=== PATIENT | male | born 1940 | race Caucasian/White ===

== ENCOUNTER 2021-04-18 01:23 | Day surgery (SDC) | payer MEDICARE, SELFPAY ==
[2021-04-09 13:09] VITALS: BMI 27.0
--- NOTE | 2021-04-17 14:24 | P.PNAN_ITS ---
Anes - Initial Pre Proc Eval Procedure: Operation Date: 04/18/21 08:15 Proposed Procedures p Colonoscopy - Rc Lai MD Date/Time: 04/17/21 14:24 Surgeon: Rc Lai MD Pre Op Diagnosis: Rectal bleed, blood in stool Patient Data Age: 80 Gender: M Height: 1.85 m Weight: 93 kg Allergies Allergy/AdvReac Type Severity Reaction Status Date / Time No Known Allergies Allergy Verified 04/18/21 07:00 Home Medications Medication Instructions Recorded Confirmed Type finasteride 5 mg PO DAILY 04/09/21 04/18/21 History tamsulosin 0.4 mg PO BID 04/09/21 04/18/21 History Patient hx anesthesia problems: none Family hx anesthesia problems: none Results Review: All pre-operative results and documents have been reviewed as part of the pre-operative evaluation. [facility] Past Medical History Medical History (Updated 04/17/21 @ 14:24 by Ruben Suárez MD) BPH (benign prostatic hyperplasia) Overweight (BMI 25.0-29.9) Social History Social History Smoking status: Never smoker Drinks per week: 7 Living arrangements: alone Spiritual care concerns: No Anes - Eval Final PreProcedure Day of Procedure 04/17/21 14:24 Patient weight: overweight Heart: regular rate and rhythm Lungs: clear to auscultation and normal air movement Airway: Mallampati scale class II Neurological: alert and oriented Last oral intake: >/= 8 hours ASA classification: II Emergent: no Anesthetic plan: proceed Anesthesia type and monitoring: general GIVS Results Review: All pre-operative results and documents have been reviewed as part of the pre-operative evaluation. Informed Consent: The patient's anesthetic plan and its attendant risks and benefits were discussed with the patient/family/POA. Questions were solicited and answers provided to the satisfaction of the patient/family/POA.
[2021-04-18 07:01] VITALS: BP 108/77; PULSE 89; RESP 16; TEMP 36.4; O2SAT 99; BMI 28.8
[2021-04-18] MEDS: LACTATED RINGERS 1,000 ML 150 ML IV CONT (07:12)
--- NOTE | 2021-04-18 07:58 | WPDGICN ---
Assessment and Plan Assessment and plan (1) Encounter for screening colonoscopy: Code(s): Z12.11 - Encounter for screening for malignant neoplasm of colon Status: Acute Assessment and Plan: Screening colonoscopy is advised because of patient's age. (2) Occult blood in stools: Code(s): R19.5 - Other fecal abnormalities Status: Acute Assessment and Plan: Patient recently found to have occult blood in stool. For this reason screening colonoscopy is advised. High-fiber diet is suggested further recommendations will be given after endoscopy. GI Consult Note Consult date/time: 04/18/21 07:58 HPI: Nolan Galindo is a 80 year old male Presents for colonoscopy. Patient recently found to have occult blood in stool. He denies abdominal pain. He has had One occasion where he noticed bright red blood per rectum with wiping.. Family history is noncontributory. His otherwise been in general good health. On no other medications. Presents today for a screening colonoscopy. Review of Systems Review of Systems: All systems reviewed & are unremarkable except as noted in HPI and below PMFSH Past Medical History Medical History (Updated 04/18/21 @ 07:59 by Rc Lai MD) BPH (benign prostatic hyperplasia) Overweight (BMI 25.0-29.9) Social History Social History Smoking status: Never smoker Drinks per week: 7 Living arrangements: alone Spiritual care concerns: No Meds Home Medications and Allergies Home Medications Medication Instructions Recorded Confirmed Type finasteride 5 mg PO DAILY 04/09/21 04/18/21 History tamsulosin 0.4 mg PO BID 04/09/21 04/18/21 History Allergies Allergy/AdvReac Type Severity Reaction Status Date / Time No Known Allergies Allergy Verified 04/18/21 07:00 Vital Signs Vital Signs - 24 hr 04/18/21 07:01 Temperature 97.5 F L Pulse Rate 89 Respiratory Rate 16 Blood Pressure 108/77 Pulse Oximetry 99 Exam Narrative: Physical exam reveals patient be alert. Vital signs stable. HEENT exam is unremarkable. Patient is anicteric. Lungs are clear to auscultation and percussion. Heart is without murmur or extra sounds. Abdominal exam bowel sounds present soft nontender with no organomegaly. Digital external rectal exam is normal.
[2021-04-18 08:25] VITALS: BP 102/62; PULSE 69; RESP 27; O2SAT 97
[2021-04-18 08:35] VITALS: BP 112/68; PULSE 71; RESP 24; O2SAT 97
[2021-04-18 08:45] VITALS: BP 121/80; PULSE 65; RESP 25; O2SAT 98
[2021-04-18 08:52] LABS: Hematocrit 41.1 % (42.0-52.0); Hemoglobin 13.7 g/dL (14.0-18.0); Mean Corpuscular HGB Conc 33.3 g/dl (32-36); Mean Corpuscular Hemoglobin 31.1 pg (26-34); Mean Corpuscular Volume 93.2 fl (80-100); Mean Platelet Volume 9.2 fl (7.4-10.4); Platelet Count Result 177 k/mm3 (150-375); Red Blood Count 4.41 M/mm3 (4.6-6.20); Red Cell Distribution Width 12.9 % (11.5-14.5); White Blood Count 4.7 K/mm3 (4.5-10.0)
[2021-04-18 09:10] LABS: Alanine Aminotransferase 19 U/L (4-50); Albumin Level 4.3 g/dL (3.5-5.1); Alkaline Phosphatase 59 U/L (38-126); Aspartate Amino Transferase 22 U/L (17-59)
[2021-04-18 09:37] LABS: Carcinoembryonic Antigen 5.5 ng/mL (0.0-3.0)
== END 2021-04-18 08:57 | disposition home or self-care (01) ==
PROVIDERS: PCP Family Medicine Adolescent Medicine; Visit Provider Internal Medicine Gastroenterology
PROC: 0DJD8ZZ Inspection of Lower Intestinal Tract, Via Natural or Artificial Opening Endoscopic (ICD-10-PCS; CPT 45378; principal; 2021-04-18 08:15)
DX: Z12.11 Encounter for screening for malignant neoplasm of colon (principal); C19 Malignant neoplasm of rectosigmoid junction; K64.8 Other hemorrhoids; K92.1 Melena; N40.0 Benign prostatic hyperplasia without lower urinary tract symptoms
CPT/HCPCS: 45380; 36415; 80076; 82378; 85027; 88305; J2704; J7120

== ENCOUNTER 2021-04-23 09:53 | Outpatient (CLI) | payer MEDICARE, SELFPAY ==
[2021-04-23 10:27] LABS: Basophils Percent Auto 0.8 % (0.2-1.2); Eosinophils Absolute Auto 0.3 K/mm3 (0-0.3); Eosinophils Percent Auto 5.8 % (0-4.4); Hematocrit 43.7 % (42.0-52.0); Hemoglobin 14.7 g/dL (14.0-18.0); Immature Granulocyte Absolute 0.04 K/mm3 (0.00-0.031); Immature Granulocyte Percent A 0.8 % (0-0.5); Lymphocytes Absolute Auto 1.52 K/mm3 (0.9-3.2); Lymphocytes Percent Auto 29.6 % (18.3-44.2); Mean Corpuscular HGB Conc 33.6 g/dl (32-36); Mean Corpuscular Hemoglobin 30.9 pg (26-34); Mean Platelet Volume 8.9 fl (7.4-10.4); Monocytes Absolute Auto 0.4 K/mm3 (0.1-0.6); Monocytes Percent Auto 8.4 % (2.6-8.5); Neutrophils Absolute Auto 2.8 K/mm3 (1.3-6.7); Neutrophils Percent Auto 54.6 % (45.5-73.1); Platelet Count Result 200 k/mm3 (150-375); Red Blood Count 4.75 M/mm3 (4.6-6.20); Red Cell Distribution Width 12.8 % (11.5-14.5); White Blood Count 5.1 K/mm3 (4.5-10.0)
[2021-04-23 10:42] LABS: Alanine Aminotransferase 22 U/L (4-50); Albumin Level 4.8 g/dL (3.5-5.1); Alkaline Phosphatase 67 U/L (38-126); Anion Gap 8 mmol/L (8-16); Aspartate Amino Transferase 24 U/L (17-59); Bilirubin,Total 1.1 mg/dL (0.2-1.3); Blood Urea Nitrogen 16 mg/dL (9-20); Calcium 10.8 mg/dL (8.4-10.2); Carbon Dioxide 25 mmol/L (22-30); Chloride 102 mmol/L (98-107); Estimated Glomerular Filt Rate > 60; Glucose 109 mg/dL (65-110); Potassium 4.8 mmol/L (3.4-5.0); Sodium 135 mmol/L (137-145)
[2021-04-23 11:09] LABS: Carcinoembryonic Antigen 6.4 ng/mL (0.0-3.0)
== END 2021-04-23 09:54 | disposition home or self-care (01) ==
LOC: ANHLAB 10:00
PROVIDERS: PCP Family Medicine Adolescent Medicine; Visit Provider Surgery
DX: C18.9 Malignant neoplasm of colon, unspecified (principal)
CPT/HCPCS: 36415; 80053; 82378; 85025

== ENCOUNTER → 2021-04-26 12:52 | Outpatient (CLI) | payer MEDICARE, SELFPAY ==
--- NOTE | ~2021-04-26 | CT_ITS ---
EXAMINATION: CT abdomen pelvis wo con DATE: 04/26/2021 13:14 INDICATION: Adenocarcinoma of colon. TECHNIQUE: Computed tomography (CT) of the abdomen and pelvis was performed without intravenous contr ast. Automated exposure control and iterative reconstruction technique were employed. The dose-length product was 848.84 mGy-cm. COMPARISON: CT abdomen and pelvis 05/30/2013 FINDINGS: The visualized portions of the lung bases demonstrate mild atelectasis. Calcified bilateral lung nodules are consistent with old granulomatous disease. No pleural effusion. The heart size is n ormal. No pericardial effusion. There is diffuse hepatic steatosis. Calcifications in the liver and s pleen are consistent with old granulomatous disease. The gallbladder, pancreas, and adrenal glands ar e normal. There is a 7 mm cyst in right kidney. There are cortical calcifications in right kidney. Th ere is a 4 mm stone in right kidney. The prostate is mildly enlarged. There are no dilated loops of b owel. The appendix is normal. There are no pathologically enlarged lymph nodes. There is no free intr aperitoneal fluid. There is moderate lumbar spondylosis. IMPRESSION: 1. No evidence of metastatic disease. Reviewed, dictated and finalized at location A. IER LOADER
== END ==
PROVIDERS: PCP Family Medicine Adolescent Medicine; Visit Provider Surgery
DX: C18.9 Malignant neoplasm of colon, unspecified (principal)
CPT/HCPCS: 74176

== ENCOUNTER 2021-05-10 15:57 | Outpatient (CLI) | payer MEDICARE, SELFPAY ==
--- NOTE | ~2021-05-10 | MR_ITS ---
EXAMINATION: MR pelvis wo/w con DATE: 05/10/2021 18:01 INDICATION: Malignant neoplasm of rectum. TECHNIQUE: Magnetic resonance imaging (MRI) of the pelvis was performed without and with 18 mL MultiH ance intravenous contrast. Sequences included coronal and axial T2-weighted FS FSE, axial T1-weighted FS FSE, axial LAVA, coronal FS FIESTA, coronal LAVA-flex, axial T2-weighted FSE, axial dual-echo T1- weighted FSPGR, axial FS FIESTA, axial DWI, and small ntyet-zy-zlut sagittal, coronal, and axial T2-w eighted FSE. Postcontrast sequences included coronal LAVA-flex and axial LAVA. COMPARISON: CT abdomen and pelvis 04/26/2021 FINDINGS: The prostate is mildly enlarged. There are no dilated loops of bowel. There is a semicircular mass ce ntered on the right in the rectum with longitudinal diameter of 4.3 cm. The lower tumor border is 6 c m from the anorectal junction. Tumor likely extends less than 5 mm beyond the muscularis propria. The re is no involvement of the mesorectal fascia or peritoneal reflection. There are no pathologically e nlarged lymph nodes. There is no free intraperitoneal fluid. IMPRESSION: 1. Rectal mass, consistent with primary adenocarcinoma. Reviewed, dictated and finalized at location A. UTER DISCOVERY TEACHER
--- NOTE | ~2021-05-10 | MR_ITS ---
EXAMINATION: MR abdomen wo/w con DATE: 05/10/2021 18:01 INDICATION: Malignant neoplasm of rectum. TECHNIQUE: Magnetic resonance imaging (MRI) of the abdomen was performed without and with 18 mL Multi Meggan intravenous contrast. Sequences included coronal T2-weighted FS FSE, coronal and axial FS FIEST A, axial T2-weighted FSE, coronal LAVA-flex, axial STIR FSE, axial DWI, axial dual-echo T1-weighted F SPGR, and axial LAVA. Postcontrast sequences included coronal LAVA-flex and a time course of axial LA VA. COMPARISON: CT abdomen and pelvis 04/26/2021 FINDINGS: There is diffuse hepatic steatosis. The gallbladder, spleen, pancreas, adrenal glands are normal. The re are cysts in the kidneys measuring up to 8 mm on the right. There are no dilated loops of bowel. T here is eccentric wall thickening of the rectum, consistent with primary adenocarcinoma. There are no pathologically enlarged lymph nodes. There is no free intraperitoneal fluid. IMPRESSION: 1. Eccentric wall thickening of the rectum, consistent with primary adenocarcinoma. No evidence of me tastatic disease. Reviewed, dictated and finalized at location A. TING MANAGER IMPRESSION: 1. Eccentric wall thickening of the rectum, consistent with primary adenocarcin kan. No evidence of metastatic disease.
== END 2021-05-10 15:58 | disposition home or self-care (01) ==
PROVIDERS: PCP Family Medicine Adolescent Medicine; Visit Provider Surgery
DX: C20 Malignant neoplasm of rectum (principal)
CPT/HCPCS: 72197; 74183; A9577

== ENCOUNTER 2021-10-14 21:37 | Emergency (ER) | payer MEDICARE, SELFPAY ==
--- NOTE | ~2021-10-14 | XR_ITS ---
EXAM: XR shoulder RT min 2V HISTORY: INJURY FROM CHEMO,PAIN TOP OF RT SHOULDER,LIMITED MOTION COMPARISON: None available FINDINGS: Decreased mineralization. No fracture or dislocation. No lytic or blastic lesion. Mild deg enerative change at the AC joint and glenohumeral joint. No erosion or periosteal change. Soft tissue s within normal limits. Left IJ implanted catheter terminating in the superior vena cava. IMPRESSION: No acute osseous finding in the right shoulder. Reviewed, dictated and finalized at location K.
[2021-10-14 22:01] VITALS: BP 130/68; PULSE 108; RESP 22; TEMP 36.6; O2SAT 99
--- NOTE | 2021-10-15 01:34 | ED.EXTPRO ---
HPI - Extremity Problem General Chief complaint: Extremity Problem,Nontraumatic Stated complaint: upper extremity pain Time Seen by Provider: 10/15/21 01:08 Source: patient Mode of arrival: ambulatory History of Present Illness HPI Narrative: 81-year-old male presenting to the emergency department for evaluation of right shoulder pain. Patient has received 8 chemotherapy treatments and states after the treatments he often has joint pain. Patient states he is currently having right shoulder pain. Patient denies any falls or injuries. After the patient's fifth chemotherapy treatment he was having bilateral knee and bilateral shoulder pain. Patient states pain last for hours and then does begin to improve. Patient did take ibuprofen and Tylenol at home with no immediate relief. Since waiting in the waiting room the symptoms have begun to improve. Related Data Home Medications Medication Instructions Recorded Confirmed finasteride 5 mg PO DAILY 04/09/21 04/25/21 Allergies Allergy/AdvReac Type Severity Reaction Status Date / Time No Known Allergies Allergy Verified 10/15/21 00:04 Review of Systems Review of Systems: CONSTITUTIONAL: Denies fever, chills, or sweats. EYES: Denies visual changes, redness, or discharge. ENT: Denies rhinorrhea, congestion, sore throat, or otalgia. CARDIOVASCULAR: Denies chest pain, palpitations, or edema. RESPIRATORY: Denies cough or dyspnea. GASTROINTESTINAL: Denies abdominal pain, nausea, vomiting, or diarrhea. GENITOURINARY: Denies dysuria or hematuria. SKIN: Denies rash or itching. MUSCULOSKELETAL: Tightness of the right shoulder NEUROLOGIC: Denies headache, numbness, or weakness. 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 (TYSON) Overweight (BMI 25.0-29.9) Surgical History Surgical History (Updated 10/15/21 @ 13:09 by Julio César Jordan MD) Hx of cervical discectomy 1992 Family History Family History Father Acute myocardial infarction Mother Liver cancer Sibling Diabetes mellitus Hypertension Social History Social History Years smoked: 15 Smoking status: Former smoker Tobacco type: cigarettes Alcohol intake: current Drinks per week: 7 Substance use: never Gender identity (if verbalized by the patient): Male Sexual Orientation (if Verbalized by the Patient): Straight or Heterosexual Spiritual care concerns: No Exam Narrative: APPEARANCE: Uncomfortable due to right shoulder pain HEAD: normocephalic, atraumatic. EYES: PERRLA/EOMI, conjunctivae clear. NOSE: Normal no drainage THROAT: Pharynx clear, no exudate. NECK: Supple. No adenopathy, no masses. RESPIRATORY: Airway patent, respirations nonlabored. Clear to auscultation bilaterally, no rales, rhonchi, wheezing. CARDIOVASCULAR: Regular rate and rhythm without murmurs rubs or gallops. ABDOMINAL: Soft, nontender, nondistended, normal bowel sounds MUSCULOSKELETAL: Mild anterior tenderness of the right shoulder. Pain with passive range of motion. No deformity or effusion or warmth NEURO: Alert. Cranial nerves II through XII intact. Good gait. Good coordination SKIN: Warm, dry. Normal Color Course Vital Signs Vital signs: Vital Signs Temperature 97.9 F 10/14/21 22:01 Pulse Rate 108 H 10/14/21 22:01 Respiratory Rate 22 H 10/14/21 22:01 Blood Pressure 130/68 10/14/21 22:01 Pulse Oximetry 99 10/14/21 22:01 Temperature 97.9 F 10/14/21 22:01 Pulse Rate 75 10/15/21 02:47 Respiratory Rate 18 10/15/21 02:47 Blood Pressure 146/90 H 10/15/21 02:47 Pulse Oximetry 97 10/15/21 02:47 Patient does feel improved with treatment. Patient does have increased r
[2021-10-15] MEDS: HYDROcodone/acetaminophen (*CRX) 10-325 MG TABLET 1 TAB PO (01:59)
[2021-10-15 02:47] VITALS: BP 146/90; PULSE 75; RESP 18; O2SAT 97
== END 2021-10-15 02:49 | disposition home or self-care (01) ==
PROVIDERS: Emergency Provider Emergency Medicine; PCP Family Medicine Adolescent Medicine
DX: M25.511 Pain in right shoulder (principal); C19 Malignant neoplasm of rectosigmoid junction; N40.0 Benign prostatic hyperplasia without lower urinary tract symptoms; E66.3 Overweight; Z68.30 Body mass index [BMI] 30.0-30.9, adult; Z87.891 Personal history of nicotine dependence; Z79.899 Other long term (current) drug therapy
CPT/HCPCS: 73030; 99283; A9270

== ENCOUNTER 2023-09-21 20:54 | Emergency (ER) | payer MEDICARE, SELFPAY ==
--- NOTE | ~2023-09-21 | CT_ITS ---
EXAMINATION: CT brain wo con DATE: 09/21/2023 21:30 INDICATION: Head injury. TECHNIQUE: Computed tomography (CT) of the head was performed without intravenous contrast. The mA wa s adjusted according to patient size. Iterative reconstruction technique was employed. The dose-lengt h product was 681.00 mGy-cm. COMPARISON: Brain MRI 12/08/2018 FINDINGS: There is no intracranial hemorrhage, acute infarction, or abnormal intracranial mass lesion . The ventricles are normal in size. There is a mucous retention cyst in left maxillary sinus. There is mild mucosal thickening in the paranasal sinuses. There are likely changes of ocular lens replacem ent surgeries. The mastoid air cells are normal. IMPRESSION: 1. Normal brain. Reviewed, dictated and finalized at location E. IMPRESSION: 1. Normal brain.
--- NOTE | ~2023-09-21 | CT_ITS ---
EXAMINATION: CT cervical spine wo con DATE: 09/21/2023 21:30 INDICATION: Head injury. TECHNIQUE: Computed tomography (CT) of the cervical spine was performed without intravenous contrast. Automated exposure control and iterative reconstruction technique were employed. The dose-length pro duct was 681.00 mGy-cm. COMPARISON: None FINDINGS: Bone alignment is normal. There is mild chronic height loss of T1 and T2 vertebral bodies. There are changes of anterior fusion procedure at C6-C7 with solid interbody fusion. There is mildly decreased disc height at C3-C4 and severely decreased disc height at C5-C6. The following disc levels are specifically discussed: C2-C3: There is no uncovertebral joint osteoarthritis. There is severe bilateral facet joint osteoart hritis. There is no neural foraminal stenosis. There is no central canal stenosis. C3-C4: There is mild right and moderate left uncovertebral joint osteoarthritis. There is severe bila teral facet joint osteoarthritis. There is mild right neural foraminal stenosis. There is no central canal stenosis. C4-C5: There is no uncovertebral joint osteoarthritis. There is severe right and moderate left facet joint osteoarthritis. There is mild right neural foraminal stenosis. There is no central canal stenos is. C5-C6: There is severe bilateral uncovertebral joint osteoarthritis. There is mild bilateral facet michael int osteoarthritis. There is moderate right and mild left neural foraminal stenosis. There is mild ce ntral canal stenosis. C6-C7: There is ankylosis of the uncovertebral joints without hypertrophy. There is ankylosis of the facet joints without hypertrophy. There is no neural foraminal stenosis. There is no central canal st enosis. C7-T1: There is no uncovertebral joint osteoarthritis. There is moderate right and severe left facet joint osteoarthritis. There is mild bilateral neural foraminal stenosis. There is no central canal st enosis. IMPRESSION: 1. No acute fracture. 2. Severe cervical spondylosis. Reviewed, dictated and finalized at location E.
[2023-09-21 21:05] VITALS: BP 148/80; PULSE 82; RESP 16; TEMP 36.6; O2SAT 96
--- NOTE | 2023-09-22 00:47 | ED.WOUNDLAC ---
HPI - Wound/Laceration General Chief Complaint: Wound/Laceration Stated Complaint: lac to r eyebrow. on blood thinners Time Seen by Provider: 09/22/23 00:47 History of Present Illness HPI narrative: Patient states that he tripped on a step and fell and hit his head, denies any loss consciousness, nausea vomiting, focal numbness or weakness, he did notice cut to his left forehead Related Data Home Medications Medication Instructions Recorded Confirmed [id number]-[id number] acid-vit 1 tablet PO DAILY 10/16/21 03/31/23 K-lycop 400 mcg-20 mcg-370 mcg tablet (Men's 50 Plus Multivitamin) prochlorperazine maleate 10 mg 10 mg PO Q6H PRN 10/16/21 03/31/23 tablet horse chestnut 300 mg capsule mg PO 03/31/23 03/31/23 nitroglycerin 0.4 mg sublingual 0.4 mg sublingual Q5M PRN 03/31/23 03/31/23 tablet Allergies Allergy/AdvReac Type Severity Reaction Status Date / Time No Known Allergies Allergy Verified 09/21/23 20:54 Review of Systems Review of Systems: All systems reviewed & are unremarkable except as noted in HPI and below PMFSH Past Medical History Medical History (Updated 09/22/23 @ 00:48 by Lara Gallegos MD) BPH (benign prostatic hyperplasia) Essential tremor Nonalcoholic fatty 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 nonalcoholic steatohepatitis (TYSON) Overweight (BMI 25.0-29.9) Surgical History Surgical History (Updated 10/15/21 @ 13:09 by Julio César Jordan MD) Hx of cervical discectomy 1992 Family History Family History (Updated 10/16/21 @ 09:34 by Adelia Irizarry MA) Father Acute myocardial infarction Heart disease Mother Liver cancer Carcinoma of colon Sibling Diabetes mellitus Hypertension Heart disease Son Asthma Son Asthma Sibling Diabetes mellitus Social History Social History (Updated 03/31/23 @ 09:01 by Violette Newby MA) Years smoked: 15 Smoking status: Former smoker Tobacco type: cigarettes Smoking end date: 06/08/76 Alcohol intake: current Drinks per week: 7 Substance use: never Substance use type: does not use Lack of Transportation: No Lack of Food: Never True Current Housing: I Have Housing Concerned About Future Housing: No Difficulty Paying Gas/Electric Bills: No Difficulty Paying for Meds: No Currently Unemployed: No Education: Trade/Vocational Certificate Difficulty w/ Childcare or Family Care: No Living arrangements: with family Occupation/Education: retired Gender identity (if verbalized by the patient): Male Sexual Orientation (if Verbalized by the Patient): Straight or Heterosexual Spiritual care concerns: No Agree to blood products: Yes Exam Narrative: EXAMINATION OF ORGAN SYSTEMS/BODY AREAS: Constitutional: Vital signs per nursing GENERAL:[No acute distress, non-toxic appearing.] HEAD: Small hematoma/laceration left forehead EYES: EOMI, conjunctiva normal ENT: Hearing grossly intact LUNGS: Nonlabored breathing. HEART: [Regular rate and rhythm] ABD: No distension EXT: Normal range of motion SKIN: Stellate lesion left forehead NEURO: [Alert and oriented x 3. No gross focal sensory or strength deficits.] PSYCH: Normal affect Course Vital Signs Vital signs: Vital Signs Temperature 97.8 F 09/21/23 21:05 Pulse Rate 82 09/21/23 21:05 Respiratory Rate 16 09/21/23 21:05 Blood Pressure 148/80 H 09/21/23 21:05 Pulse Oximetry 96 09/21/23 21:05 Oxygen Delivery Room Air 09/21/23 21:05 Temperature 97.8 F 09/21/23 21:05 Pulse Rate 77 09/22/23 01:09 Respiratory Rate 17 09/22/23 01:09 Blood Pressure 133/74 09/22/23 01:09 Pulse Oximetry 95 09/22/23 01:09 Oxygen Delivery Room Air 09/21/23 21:05 MDM - Wound/Laceration MDM Narrative Medical decision making narrative: Patient presents as after mechanical fall with head injury on Plavix and aspirin, CT head and C-spine thankfully normal, patient will prefer not to have sutures
[2023-09-22 01:09] VITALS: BP 133/74; PULSE 77; RESP 17; O2SAT 95
== END 2023-09-22 01:13 | disposition home or self-care (01) ==
PROVIDERS: Emergency Provider Emergency Medicine; PCP Family Medicine Adolescent Medicine
DX: N40.0 Benign prostatic hyperplasia without lower urinary tract symptoms (principal); E66.3 Overweight; Z68.29 Body mass index [BMI] 29.0-29.9, adult; Z87.891 Personal history of nicotine dependence; Z79.02 Long term (current) use of antithrombotics/antiplatelets; Z79.82 Long term (current) use of aspirin; W10.9XXA Fall (on) (from) unspecified stairs and steps, initial encounter
CPT/HCPCS: 70450; 72125; 99284

== ENCOUNTER 2024-03-17 09:06 | Outpatient (CLI) | payer MEDICARE, SELFPAY ==
--- NOTE | ~2024-03-17 | XR_ITS ---
Right ankle Technique: AP and lateral views were obtained. Clinical History: Sprain Findings: No acute fracture or dislocation is seen. Osseous alignment is anatomic. Ankle mortise and other visualized joint spaces are preserved. Soft tissues are otherwise unremarkable. Impression: Unremarkable right ankle. Reviewed, dictated and finalized at location . Impression: Unremarkable right ankle.
== END 2024-03-17 09:07 | disposition home or self-care (01) ==
PROVIDERS: PCP Family Medicine Adolescent Medicine; Visit Provider Nurse Practitioner Family
DX: S93.421A Sprain of deltoid ligament of right ankle, initial encounter (principal); X58.XXXA Exposure to other specified factors, initial encounter
CPT/HCPCS: 73600

== ENCOUNTER 2024-06-21 13:57 | Outpatient (CLI) | payer MEDICARE, SELFPAY ==
--- NOTE | ~2024-06-21 | XR_ITS ---
XR sacrum coccyx min 2V Ordering provider: Brooke Bhandari DO History: . M53.3 - Sacrococcygeal disorders, not elsewhere classified . Comparison: None. FINDINGS: BONES: Possible lucency in the sacrum is noted. Possible lucency in the last suggestive segment is al so noted. CT evaluation advised. JOINTS: The sacroiliac joint spaces are normal. Bilateral hip mild to moderate osteoarthritic changes. SOFT TISSUES: Normal. IMPRESSION: Possible lucency in the sacrum and in the coccyx. Further evaluation advised. Reviewed, dictated and finalized at location A. ER CRANE OPERATOR
== END 2024-06-21 13:58 | disposition home or self-care (01) ==
LOC: MICIMG 13:57
PROVIDERS: PCP Family Medicine Adolescent Medicine; Visit Provider Family Medicine
DX: M53.3 Sacrococcygeal disorders, not elsewhere classified (principal)
CPT/HCPCS: 72220